=== PATIENT | male | born 1980 | race Caucasian/White ===

== ENCOUNTER → 2025-03-31 | Outpatient (CLI) | payer BC ==
--- NOTE | 2025-03-31 19:55 | XR ---
EXAMINATION TYPE: XR KUB DATE OF EXAM: 03/31/2025 5:46 PM COMPARISON: None. CLINICAL INDICATION: Male, 45 years old with history of N20.0 CALCULUS OF KIDNEY, TECHNIQUE: Single view of the abdomen. FINDINGS: Right renal calculi: None Visualized. Right ureteral calculi: None Visualized. Left renal calculi: None Visualized. Left ureteral calculi: 3.7 mm Left ureteral calculus noted at the approximate left S3-S4 level. Pelvic calcifications: Multiple pelvic phleboliths noted. Bowel gas pattern is unremarkable. No free air. No mass effects. IMPRESSION: 1. 3.7 mm Left ureteral calculus noted at the approximate left S3-S4 level. [facility], , 03/31/2025 7:53 PM
== END | disposition home or self-care (01) ==
LOC: RADXRMAIN 17:25
PROVIDERS: ATTEND Urology
DX: N20.2 Calculus of kidney with calculus of ureter (principal)
CPT/HCPCS: 74018

== ENCOUNTER 2025-04-08 10:01 | Day surgery (SDC) | payer BC ==
[~2025-04-08 10:01] MED LIST: LIDOCAINE 1% (10MG/ML) FOR IV START INTRADERMA PRN; droPERidol 2.5 MG/ML VIAL IVP ONE; fentaNYL (PF) 50 MCG/ML 2 ML AMP IV PRN
[2025-04-08] MEDS: IV FLUID CONTINUATION 1,000 ML IV ONE ×2 (10:21→12:50)
--- NOTE | 2025-04-08 10:22 | XR ---
EXAMINATION TYPE: XR KUB DATE OF EXAM: 04/08/2025 10:12 AM CLINICAL INDICATION: Male, 45 years old with history of Ureteral Stone N20.1, pain TECHNIQUE: 1 view of the abdomen. COMPARISON: Prior abdominal x-ray March 31, 2025. FINDINGS: Stable 4 mm calculus distal left ureter projecting over the mid sacrum. No definitive new r enal calculi. Scattered small peripheral bilateral pelvic phleboliths redemonstrated. Surgical sutures right lower quadrant are redemonstrated. Overall nonobstructive bowel gas pattern. O sseous structures are intact. IMPRESSION: As above. [facility], , 04/08/2025 10:20 AM
[2025-04-08 10:28] VITALS: TEMP 97.1
[2025-04-08 10:44] LABS: Glucose,Whole Blood 110 mg/dL (70-110)
[2025-04-08] MEDS: ONDANSETRON 4 MG/2 ML VIAL IVP ONE (10:44)
[2025-04-08] MEDS: DEXAMETHASONE SOD PHOSPHATE 4 MG/ML 1 ML VIAL IV ONE (10:44)
[2025-04-08] MEDS: LACTATED RINGERS 1,000 ML IV SCH (10:44)
[2025-04-08 10:57] LABS: Basophils # (A) 0.04 10*3/uL (0.00-0.10); Basophils % (A) 0.4 %; Eosinophils % (A) 2.2 %; HCT 41.3 % (39.6-50.0); HGB 14.5 g/dL (13.0-17.0); Lymphocytes # (A) 1.89 10*3/uL (0.90-5.00); Lymphocytes % (A) 20.7 %; MCH 31.4 pg (27.0-32.0); MCHC 35.1 g/dL (32.0-37.0); MCV 89.4 fL (80.0-97.0); Mean Platelet Volume 9.5 fL (9.5-12.2); Monocytes # (A) 0.58 10*3/uL (0.20-1.00); Monocytes % (A) 6.4 %; Neutrophils % (A) 70.1 %; Platelet Count 311 10*3/uL (140-440); RBC 4.62 10*6/uL (4.40-5.60); RDW 13.4 % (11.5-14.5); WBC 9.13 10*3/uL (4.50-10.00)
[2025-04-08 11:11] LABS: African American GFR (CKD) >90 (>60 ml/min/1.73 sqM); Anion Gap 8 mmol/L; Blood Urea Nitrogen 16 mg/dL (9-20); Calcium 9.5 mg/dL (8.4-10.2); Carbon Dioxide 29 mmol/L (22-30); Chloride 104 mmol/L (98-107); Glucose 108 mg/dL (74-99); Non-African American GFR(CKD) >90 (>60 ml/min/1.73 sqM); Sodium 141 mmol/L (137-145)
[2025-04-08 11:12] LABS: Potassium 4.3 mmol/L (3.5-5.1)
[2025-04-08] MEDS ORDERED: PROPOFOL 10 MG/ML 20 ML VIAL IV ONE (11:13)
[2025-04-08] MEDS ORDERED: SUCCINYLCHOLINE CHLORIDE 200 MG/10 ML VIAL IV ONE (11:13)
[2025-04-08] MEDS ORDERED: LABETALOL 5 MG/ML VIAL MDV ONE (11:13)
[2025-04-08] MEDS ORDERED: LIDOCAINE 1% INJ 10MG/ML (20 ML MDV) ONE (11:13)
[2025-04-08] MEDS ORDERED: ROCURONIUM 10 MG/ML (5 ML VIAL) IV ONE (11:13)
[2025-04-08] MEDS ORDERED: MIDAZOLAM 2 MG/2 ML VIAL ONE (11:13)
[2025-04-08] MEDS ORDERED: NEOSTIGMINE 1 MG/ML 10 ML VIAL ONE (11:13)
[2025-04-08] MEDS ORDERED: HYDROmorphone (PF) 1 MG/ML ONE (11:13)
[2025-04-08] MEDS ORDERED: KETOROLAC 15 MG/ML 1 ML VIAL ONE (11:13)
[2025-04-08] MEDS ORDERED: fentaNYL (PF) 50 MCG/ML 2 ML AMP ONE (11:13)
[2025-04-08] MEDS ORDERED: GLYCOPYRROLATE 0.2 MG/ML 2 ML VIAL ONE (11:13)
[2025-04-08] MEDS: ceFAZolin 2 GM in DEXTROSE 5% IN WATER 50 ML IVPB PRN (11:18)
--- NOTE | 2025-04-08 11:23 | P.HPIHPCON ---
History of Present Illness H&P Date: 04/08/25 Chief Complaint: Left ureteral calculi This is a 45-year-old male with history of a 4 mm left-sided distal stone. He has failed medical expulsive therapy. Discussed given persistent pain and the stone not passing I do recommend proceeding with surgical intervention. Option of left-sided ureteroscopy versus ESWL was discussed. He agreed to proceed with left-sided ureteroscopy. He is aware of the risk which include but not limited to bleeding, infection, injury to the ureter Consent for Procedure: I have explained the operation/procedure to the patient, including the risks, benefits, side effects, alternative therapies (including not receiving the proposed treatment or service), the likelihood of the patient achieving his/her goals, and potential recuperation problems for the procedure/sedation/analgesia, as well as any blood products, if indicated. I also explained to the patient the risks, benefits and side effects of the alternatives, as well as the risks related to not receiving the proposed procedure, care, treatment, or services. Past Medical History Past Medical History: Diabetes Mellitus, Skin Disorder Additional Past Medical History / Comment(s): COLITIS, ECZEMA, kidney stones, prediabetic History of Any Multi-Drug Resistant Organisms: None Reported Past Surgical History: Adenoidectomy, Bowel Resection, Tonsillectomy Additional Past Surgical History / Comment(s): COLOSTOMY WITH LATER REVERSAL, COLONOSCOPY Past Anesthesia/Blood Transfusion Reactions: No Reported Reaction Smoking Status: Never smoker - Past Family History Mother Family Medical History: Cancer Medications and Allergies Home Medications Medication Instructions Recorded Confirmed Type Diphenoxylate HCl/Atropine 10 tab PO BID PRN 05/05/14 04/08/25 History [Lomotil] Imipramine HCl [Tofranil] 25 mg PO HS 05/05/14 04/08/25 History lamoTRIgine [LaMICtal Xr] 25 mg PO BID 05/05/14 04/08/25 History Tirzepatide [Mounjaro] 12.5 mg SQ FR 04/05/25 04/08/25 History Allergies Allergy/AdvReac Type Severity Reaction Status Date / Time morphine Allergy Rash/Hives Verified 04/08/25 10:23 Surgical - Exam Vital Signs Temp Pulse Resp BP Pulse Ox 97.1 F L 92 18 134/88 98 04/08/25 10:20 04/08/25 10:20 04/08/25 10:20 04/08/25 10:20 04/08/25 10:20 - General no distress, no pain - Eyes normal ocular movement, no pale - ENT normal nares, normal mucosa - Respiratory normal expansion, normal respiratory effort - Abdomen Abdomen: soft, non tender - Psychiatric oriented to time, oriented to person, oriented to place Results - Labs 04/08/25 10:31 04/08/25 10:31 Abnormal Lab Results - Last 24 Hours (Table) 04/08/25 Range/Units 10:31 Glucose 108 H (74-99) mg/dL Diabetes panel 04/08/25 Range/Units 10:31 Sodium 141 (137-145) mmol/L Potassium 4.3 (3.5-5.1) mmol/L Chloride 104 (98-107) mmol/L Carbon Dioxide 29 (22-30) mmol/L BUN 16 (9-20) mg/dL Creatinine 0.77 (0.66-1.25) mg/dL Glucose 108 H (74-99) mg/dL Calcium 9.5 (8.4-10.2) mg/dL Calcium panel 04/08/25 Range/Units 10:31 Calcium 9.5 (8.4-10.2) mg/dL Pituitary panel 04/08/25 Range/Units 10:31 Sodium 141 (137-145) mmol/L Potassium 4.3 (3.5-5.1) mmol/L Chloride 104 (98-107) mmol/L Carbon Dioxide 29 (22-30) mmol/L BUN 16 (9-20) mg/dL Creatinine 0.77 (0.66-1.25) mg/dL Glucose 108 H (74-99) mg/dL Calcium 9.5 (8.4-10.2) mg/dL Adrenal panel 04/08/25 Range/Units 10:31 Sodium 141 (137-145) mmol/L Potassium 4.3 (3.5-5.1) mmol/L Chloride 104 (98-107) mmol/L Carbon Dioxide 29 (22-30) mmol/L BUN 16 (9-20) mg/dL Creatinine 0.77 (0.66-1.25) mg/dL Glucose 108 H (74-99) mg/dL Calcium 9.5 (8.4-10.2) mg/dL Assessment and Plan Assessment: OR for left-sided ureteroscopy, holmium lithotripsy, stone basketing possible stent insertion
--- NOTE | 2025-04-08 12:21 | FL ---
EXAMINATION TYPE: FL guidance operating room DATE OF EXAM: 04/08/2025 CLINICAL INDICATION: Male, 45 years old with history of CYSTOSCOPY LITHOTRIPSY, TECHNIQUE: Fluoroscopy. COMPARISON: Abdominal x-ray earlier today. FINDINGS: Fluoroscopic guidance was provided during cystoscopy with lithotripsy procedure performed by Dr. Arenas. A total of 75.8 seconds of fluoroscopic time was utilized during the procedure and 9 spot images was acquired. Images show placement of ureter stent. TOTAL DAP = [id number] [id number]. IMPRESSION: As Above. [facility], , 04/08/2025 12:19 PM
[2025-04-08] MEDS: IOPAMIDOL-370 100ML BTL MISCELLANE ONE (12:33)
[2025-04-08 14:08] VITALS: BP 145/88; PULSE 87; RESP 18
--- NOTE | 2025-04-08 22:07 | P.OP ---
Date of Procedure: 04/08/25 Preoperative Diagnosis: Left ureteral stone Postoperative Diagnosis: Same Procedure(s) Performed: Cystoscopy, left ureteroscopy, ureteral balloon dilation and stent insertion Implants: 6 [place]an by 24 cm stents in the left ureter left on a string Anesthesia: ALIN Surgeon: Antonio Perea Estimated Blood Loss (ml): 5 Pathology: none sent Condition: stable Disposition: PACU Indications for Procedure: This is a 45-year-old male with history of a 4 mm left-sided distal stone. He has failed medical expulsive therapy. Discussed given persistent pain and the stone not passing I do recommend proceeding with surgical intervention. Option of left-sided ureteroscopy versus ESWL was discussed. He agreed to proceed with left-sided ureteroscopy. He is aware of the risk which include but not limited to bleeding, infection, injury to the ureter Operative Findings: Left distal ureteral stricture, no stone was seen Description of Procedure: Patient brought to the operating room, general anesthesia was induced. He was prepped and draped in sterile fashion placed in a dorsolithotomy position. Cystoscopy through 21 [place]an sheath was inserted per urethra, cystoscopy was performed which showed no abnormality within the bladder. Of note patient had a moderately enlarged prostate that was occlusive, there was a slight enlargement over the median lobe also with intravesical extension. At this time a semirigid ureteroscope was inserted per urethra and advanced up the left ureteral orifice, at this point I encountered a significant narrowing of the distal ureter. At this time a wire was advanced through the ureteroscope and the ureteroscope was withdrawn with the wire in place. Next a 15 [place]an balloon dilator was passed over the wire and the balloon was maintained distal to the radiopaque density. At this time under fluoroscopy the distal ureter was dilated. This time the balloon dilator was withdrawn and the semirigid ureteroscope was inserted per urethra, at the level of the radiopaque density no stone was seen, this was more consistent with a phlebolith. Of note proximal to the ureteral stricture there was moderate dilation of the ureter, I was able to advance the ureteroscope all the way up to the proximal ureter and there was no evidence of stones. Pullback ureteroscopy was performed showed no injury to the ureter and ureteral stones, of note the area of the ureteral narrowing was slightly edematous. At this time as ureteroscope was withdrawn a sensor wire was advanced through. Next ureteral stent was passed over the wire, the proximal curl was realized on fluoroscopy and the distal curl was visualized using cystoscope. The stent was left on a string and taped to the patient penis. Patient tolerated procedure well was taken recovery in stable condition
== END 2025-04-08 14:09 | disposition home or self-care (01) ==
LOC: OR 10:01
PROVIDERS: ATTEND Urology
DX: N20.1 Calculus of ureter (principal); N13.5 Crossing vessel and stricture of ureter without hydronephrosis; N40.1 Benign prostatic hyperplasia with lower urinary tract symptoms; N13.8 Other obstructive and reflux uropathy; E11.9 Type 2 diabetes mellitus without complications; Z79.85 Long-term (current) use of injectable non-insulin antidiabetic drugs; Z79.899 Other long term (current) drug therapy; Z88.5 Allergy status to narcotic agent
CPT/HCPCS: 52344; 52332; 80048; 85025; 74018; C1769; J2250; J0330; J1100; J2710; J0690; J2405; J2003; J3010; J1171; J1885; J2704; Q9967; J1920; J1596

== ENCOUNTER → 2025-05-27 | Outpatient (CLI) | payer BC ==
--- NOTE | 2025-05-27 15:40 | XR ---
EXAMINATION TYPE: XR KUB DATE OF EXAM: 05/27/2025 3:18 PM COMPARISON: 04/08/2025 CLINICAL INDICATION: Male, 45 years old with history of N20.0 CALCULUS OF KIDNEY; PHH, pain TECHNIQUE: One radiographic view of the abdomen was obtained. FINDINGS: Gassy colon along the right side of the abdomen. Staple line in the midline pelvis relating to prior distal colon surgery. Multiple pelvic phleboliths. Otherwise, no definite suspicious calcif ication is seen. Mild degenerative change. No dilated small bowel loops are seen. IMPRESSION: Gassy colon within the right side of the abdomen. No significant stool burden. Multiple pelvic phlebo liths. [facility], , 05/27/2025 3:38 PM
== END | disposition home or self-care (01) ==
LOC: RADXRMAIN 14:59
PROVIDERS: ATTEND Urology
DX: N20.0 Calculus of kidney (principal)
CPT/HCPCS: 74018